=== PATIENT | male | born 1970 | race Two or more races ===

== ENCOUNTER 2020-01-31 22:32 | Emergency (ER) | payer SELFPAY ==
[~2020-01-31] VITALS: Ht 165.1 cm; Wt 83.9 kg
[2020-02-01 00:41] VITALS: BP 143/90
== END 2020-02-01 00:42 | disposition home or self-care (01) ==
LOC: ER 22:32
DX: R06.00 Dyspnea, unspecified (principal); I10 Essential (primary) hypertension; M19.90 Unspecified osteoarthritis, unspecified site
CPT/HCPCS: 71045; 93005; 99283

== ENCOUNTER 2021-10-05 18:24 | Emergency (ER) | payer MEDICAID ==
[~2021-10-05] VITALS: Ht 165.1 cm; Wt 86.0 kg
[2021-10-06 00:46] LABS: BASOPHILS % 0.3 % (0.0-2.0); EOSINOPHILS % 0.7 % (0.0-5.0); HEMATOCRIT. 49.4 % (42.0-52.0); LYMPHOCYTES % 20.9 % (20.0-50.0); MEAN CORPUSCULAR HEMOGLOBIN 29.7 pg (28.0-32.0); MEAN CORPUSCULAR VOLUME 86.5 fL (80.0-94.0); MEAN PLATELET VOLUME 8.9 fl (7.4-10.4); MONOCYTES % 10.2 % (2.0-8.0); NEUTROPHILS % 67.9 % (40.0-76.0); PLATELET 295 x1000/uL (130-400); RED BLOOD CELL COUNT 5.72 mill/uL (4.7-6.1); RED CELL DISTRIBUTION WIDTH 12.6 % (11.6-14.6)
[2021-10-06 00:53] LABS: CHLORIDE 93 mEq/L (98-107)
[2021-10-06 00:59] LABS: ETHANOL BLOOD < 10 mg/dL
[2021-10-06 01:37] LABS: CLARITY URINE CLEAR (CLEAR); COLOR URINE YELLOW (YELLOW); KETONES URINE TRACE (NEGATIVE); LEUKOCYTE ESTERASE URINE NEGATIVE (NEGATIVE); NITRITE URINE NEGATIVE (NEGATIVE); OCCULT BLOOD URINE NEGATIVE (NEGATIVE); PH URINE 5.5 (4.5-8.0); PROTEIN URINE NEGATIVE (NEGATIVE); SPECIFIC GRAVITY URINE 1.005 (1.005-1.030); UROBILINOGEN URINE 0.2 E.U./dL (0.2-1.0)
[2021-10-06 02:08] LABS: *COCAINE SCREEN URINE NEGATIVE (NEGATIVE); METHADONE URINE SCREEN NEGATIVE (NEGATIVE); OPIATES URINE SCREEN NEGATIVE (NEGATIVE); PHENCYCLIDINE URINE SCREEN NEGATIVE (NEGATIVE)
[2021-10-06 02:09] LABS: *AMPHETAMINES SCREEN URINE NEGATIVE (NEGATIVE); *BARBITURATES SCREEN URINE NEGATIVE (NEGATIVE); *BENZODIAZEPINES SCREEN URINE NEGATIVE (NEGATIVE); CANNABINOID URINE SCREEN NEGATIVE (NEGATIVE)
[2021-10-06 02:38] VITALS: BP 152/91
== END 2021-10-06 02:39 | disposition home or self-care (01) ==
LOC: ER 18:24
DX: T59.891A Toxic effect of other specified gases, fumes and vapors, accidental (unintentional), initial encounter (principal); Y92.9 Unspecified place or not applicable; K85.90 Acute pancreatitis without necrosis or infection, unspecified; E87.6 Hypokalemia; I10 Essential (primary) hypertension; M19.90 Unspecified osteoarthritis, unspecified site
CPT/HCPCS: 36415; 80053; 80305; 80307; 80320; 80329; 81003; 82140; 84443; 85025; 93005; 99284; G0480